=== PATIENT | female | born 1990 | race Caucasian/White ===

== ENCOUNTER → 2018-10-09 | Outpatient (CLI) | payer OTHER ==
[2018-10-09 09:20] LABS: ALANINE AMINOTRANSFERASE 12 U/L (9-52); ALBUMIN 4.7 g/dL (3.5-5.0); ALKALINE PHOSPHATASE 65 U/L (38-126); ANION GAP 10 (5-19); ASPARTATE AMINO TRANSFERASE 18 U/L (14-36); BILIRUBIN,DIRECT 0.4 mg/dL (0.0-0.4); BLOOD UREA NITROGEN 15 mg/dL (7-20); CALCIUM 9.7 mg/dL (8.4-10.2); CARBON DIOXIDE 27 mmol/L (22-30); CHLORIDE 105 mmol/L (98-107); GLUCOSE 99 mg/dL (75-110); POTASSIUM 4.4 mmol/L (3.6-5.0); SODIUM 141.9 mmol/L (137-145); TOTAL PROTEIN 7.5 g/dL (6.3-8.2)
== END ==
LOC: LAB 08:31
PROVIDERS: ATTEND Advanced Practice Midwife
DX: N97.9 Female infertility, unspecified (principal)
CPT/HCPCS: 36415; 80053; 82626; 83001; 83002; 83498; 83525; 84146

== ENCOUNTER → 2018-10-21 | Outpatient (CLI) | payer OTHER | LOC: LAB 06:00 | PROVIDERS: ATTEND Advanced Practice Midwife | DX: N91.2 Amenorrhea, unspecified (principal) | CPT/HCPCS: 36415; 84146; 84702 ==

== ENCOUNTER → 2018-11-26 | Outpatient (CLI) | payer OTHER | LOC: LAB 08:32 | PROVIDERS: ATTEND Obstetrics & Gynecology | DX: N91.2 Amenorrhea, unspecified (principal) | CPT/HCPCS: 36415; 84702 ==

== ENCOUNTER → 2018-11-28 | Outpatient (CLI) | payer OTHER | LOC: LAB 12:07 | PROVIDERS: ATTEND Advanced Practice Midwife | DX: N97.9 Female infertility, unspecified (principal) | CPT/HCPCS: 36415; 84702 ==

== ENCOUNTER 2019-07-01 14:37 | Outpatient (CLI) | payer OTHER ==
[2019-07-01 15:17] LABS: ABSOLUTE BASOPHILS # (AUTO) 0.1 10^3/uL (0.0-0.2); ABSOLUTE EOSINOPHILS # (AUTO) 0.2 10^3/uL (0.0-0.6); ABSOLUTE LYMPHOCYTES (AUTO) 1.4 10^3/uL (0.5-4.7); ABSOLUTE NEUT (AUTO) 10.3 10^3/uL (1.7-8.2); BASOPHILS % (AUTO) 0.4 % (0-2); EOSINOPHILS % (AUTO) 1.3 % (0-6); HEMATOCRIT 31.7 % (36.0-47.0); HEMOGLOBIN 10.3 g/dL (12.0-15.5); LYMPHOCYTES % (AUTO) 10.6 % (13-45); MEAN CORPUSCULAR HEMOGLOBIN 26.4 pg (27.0-33.4); MEAN CORPUSCULAR HGB CONC 32.4 g/dL (32.0-36.0); MEAN CORPUSCULAR VOLUME 81 fl (80-97); MONOCYTES % (AUTO) 7.6 % (3-13); PLATELET COUNT 324 10^3/uL (150-450); RED CELL DISTRIBUTION WIDTH 13.2 % (11.5-14.0); SEGMENTED NEUTROPHILS % (AUTO) 80.1 % (42-78); TOTAL CELLS COUNTED % (AUTO) 100 %; WHITE BLOOD COUNT 12.8 10^3/uL (4.0-10.5)
[2019-07-01 15:24] LABS: APPEARANCE,URINE CLEAR; BILIRUBIN,URINE NEGATIVE (NEGATIVE); COLOR,URINE YELLOW; GLUCOSE, URINE NEGATIVE (NEGATIVE); KETONES,URINE NEGATIVE (NEGATIVE); LEUKOCYTE ESTERASE,URINE TRACE (NEGATIVE); NITRITE,URINE NEGATIVE (NEGATIVE); PROTEIN,URINE NEGATIVE (NEGATIVE); URINE SPECIFIC GRAVITY 1.005; UROBILINOGEN,URINE NEGATIVE mg/dL (<2.0)
[2019-07-01 15:27] LABS: URINE AMPHETAMINES SCREEN NEGATIVE; URINE BARBITURATES SCREEN NEGATIVE; URINE BENZODIAZEPINES SCREEN NEGATIVE; URINE COCAINE SCREEN NEGATIVE; URINE MARIJUANA (THC) SCREEN NEGATIVE; URINE METHADONE SCREEN NEGATIVE; URINE PHENCYCLIDINE SCREEN NEGATIVE
[2019-07-01 15:43] LABS: ALBUMIN 3.5 g/dL (3.5-5.0); ALKALINE PHOSPHATASE 158 U/L (38-126); ANION GAP 10 (5-19); ASPARTATE AMINO TRANSFERASE 19 U/L (14-36); BILIRUBIN,TOTAL 0.7 mg/dL (0.2-1.3); BLOOD UREA NITROGEN 5 mg/dL (7-20); CARBON DIOXIDE 21 mmol/L (22-30); CHLORIDE 104 mmol/L (98-107); GLUCOSE 89 mg/dL (75-110); TOTAL PROTEIN 6.7 g/dL (6.3-8.2)
[2019-07-01 15:54] LABS: UR PRO/CREAT RATIO RESULT 0.3 mg/mg (0.0-0.2); URINE CREATININE 51.1 mg/dL (16-327); URINE PROTEIN 14.3 mg/dL (<12)
--- NOTE | 2019-07-01 16:20 | Non Stress Test Report ---
Non Stress Test Datetime Report Generated by CPN: 07/01/2019 16:19 DEMOGRAPHIC EGA NST: 35.6 INDICATION Indication for Study: Ordered by Provider Indication for Study (NST) Other: LC MONITORING Monitor Explained: Monitor Explained; Test Explained; Patient Verbalized Understanding Time on Monitor: 07/01/2019 14:50 Time off Monitor: 07/01/2019 15:45 NST Duration: 55 NST INTERVENTIONS NST Interventions: PO Hydration Physician Notified NST: N Garcia CNM BABY A: [id number] BABY A Movement : Present Contraction Frequency : rare FHR Baseline : 145 Accelerations : 15X15 Decelerations : None Variability : Moderate 6-25bpm NST Review: Meets Criteria for Reactive NST NST Review and Verified By : Shelby Claudio RN NST Results: Reactive NST REPORT Report Trigger: Send Report
[2019-07-02 16:57] LABS: URINE PROTEIN 15.1 mg/dL (<12)
[2019-07-02 16:59] LABS: 24 HOUR URINE PROTEIN RESULT 429 mg/day (42-225)
== END 2019-07-01 16:03 | disposition home or self-care (01) ==
LOC: LC 14:37
PROVIDERS: ATTEND Obstetrics & Gynecology
PROC: 4A1HXCZ Monitoring of Products of Conception, Cardiac Rate, External Approach (ICD-10-PCS; principal; 2019-07-01)
DX: O24.410 Gestational diabetes mellitus in pregnancy, diet controlled (principal); Z3A.35 35 weeks gestation of pregnancy
CPT/HCPCS: 36415; 59025; 80053; 80307; 81001; 82570; 83615; 84156; 84550; 85025; 87086

== ENCOUNTER 2019-07-26 14:20 | Inpatient (IN) | payer OTHER ==
[2019-07-26] MEDS ORDERED: PENICILLIN G POTASSIUM 5,000,000 UNIT in DEXTROSE 5%-WATER 100 ML IV ONE (14:32)
[2019-07-26] MEDS ORDERED: DINOPROSTONE 10 MG VAGINAL INSERT.SR PV PRN (14:32)
[2019-07-26] MEDS ORDERED: RINGERS SOLUTION,LACTATED 300 ML IV ONE (14:32)
[2019-07-26] MEDS ORDERED: OXYTOCIN/NORMAL SALINE 20 UNIT/1,000 ML RTUINJ IV PRN (14:32)
[2019-07-26 15:09] LABS: ABSOLUTE BASOPHILS # (AUTO) 0.1 10^3/uL (0.0-0.2); ABSOLUTE EOSINOPHILS # (AUTO) 0.1 10^3/uL (0.0-0.6); ABSOLUTE LYMPHOCYTES (AUTO) 1.7 10^3/uL (0.5-4.7); ABSOLUTE NEUT (AUTO) 12.5 10^3/uL (1.7-8.2); BASOPHILS % (AUTO) 0.5 % (0-2); HEMATOCRIT 30.9 % (36.0-47.0); HEMOGLOBIN 10.3 g/dL (12.0-15.5); MEAN CORPUSCULAR HEMOGLOBIN 25.5 pg (27.0-33.4); MEAN CORPUSCULAR HGB CONC 33.3 g/dL (32.0-36.0); MONOCYTES % (AUTO) 6.3 % (3-13); PLATELET COUNT 350 10^3/uL (150-450); RED BLOOD COUNT 4.04 10^6/uL (3.72-5.28); RED CELL DISTRIBUTION WIDTH 14.4 % (11.5-14.0); SEGMENTED NEUTROPHILS % (AUTO) 81.2 % (42-78); TOTAL CELLS COUNTED % (AUTO) 100 %; WHITE BLOOD COUNT 15.4 10^3/uL (4.0-10.5)
[2019-07-26 15:13] LABS: MEAN CORPUSCULAR VOLUME 77 fl (80-97)
[2019-07-26] MEDS: RINGERS SOLUTION,LACTATED 1,000 ML IV PRN ×2 (15:17→23:09)
[2019-07-26 15:27] LABS: URINE AMPHETAMINES SCREEN NEGATIVE; URINE BARBITURATES SCREEN NEGATIVE; URINE BENZODIAZEPINES SCREEN NEGATIVE; URINE COCAINE SCREEN NEGATIVE; URINE MARIJUANA (THC) SCREEN NEGATIVE; URINE METHADONE SCREEN NEGATIVE; URINE PHENCYCLIDINE SCREEN NEGATIVE
[2019-07-26] MEDS ORDERED: MISOPROSTOL 0.1 MG TABLET ONE (15:29)
[2019-07-26] MEDS: MISOPROSTOL 0.1 MG TABLET PO SCH (15:43)
[2019-07-26] MEDS ORDERED: MISOPROSTOL 0.1 MG TABLET PV SCH (15:45)
[2019-07-26] MEDS ORDERED: MISOPROSTOL 0.1 MG TABLET PO SCH (16:00)
[2019-07-26 18:35] LABS: APPEARANCE,URINE CLOUDY; BILIRUBIN,URINE NEGATIVE (NEGATIVE); COLOR,URINE YELLOW; GLUCOSE, URINE NEGATIVE (NEGATIVE); KETONES,URINE NEGATIVE (NEGATIVE); LEUKOCYTE ESTERASE,URINE NEGATIVE (NEGATIVE); NITRITE,URINE NEGATIVE (NEGATIVE); PROTEIN,URINE NEGATIVE (NEGATIVE); URINE SPECIFIC GRAVITY 1.024; UROBILINOGEN,URINE NEGATIVE mg/dL (<2.0)
[2019-07-26] MEDS ORDERED: PENICILLIN G POTASSIUM 2,500,000 UNIT in DEXTROSE 5%-WATER 50 ML IV SCH (18:36)
[2019-07-26] MEDS ORDERED: MISOPROSTOL 0.2 MG TABLET ONE (19:27)
[2019-07-26] MEDS ORDERED: LIDOCAINE 1% INJ-PF (10 MG/ML) 30 ML SDV ONE (19:28)
[2019-07-26] MEDS ORDERED: OXYTOCIN/NORMAL SALINE 20 UNIT/1,000 ML RTUINJ ONE (19:28)
[2019-07-26] MEDS ORDERED: SERTRALINE HCL 50 MG TABLET ONE (22:55)
[2019-07-26] MEDS ORDERED: DINOPROSTONE 10 MG VAGINAL INSERT.SR ONE (22:56)
[2019-07-26] MEDS ORDERED: ZOLPIDEM TARTRATE 5 MG TABLET ONE (23:44)
[2019-07-27] MEDS ORDERED: DIPHENHYDRAMINE HCL 50 MG/ML VIAL ONE (00:55)
[2019-07-27] MEDS ORDERED: ZOLPIDEM TARTRATE 5 MG TABLET PO ONE (01:00)
[2019-07-27] MEDS ORDERED: DIPHENHYDRAMINE HCL 50 MG/ML VIAL IV ONE (01:00)
[2019-07-27] MEDS ORDERED: FENTANYL CITRATE INJ/PF 100 MCG/2 ML AMPUL ONE (04:01)
[2019-07-27] MEDS ORDERED: PHENYLEPHRINE HCL INJ/PF 10 MG/1 ML SDV ONE (04:01)
[2019-07-27] MEDS ORDERED: FENTANYL/BUPIVACAINE/NS/PF 300 MCG/150 ML RTUINJ EPI ONE (04:02)
[2019-07-27] MEDS ORDERED: EPHEDRINE SULFATE INJ 50 MG/1 ML AMPULE ONE ×2 (04:02→05:56)
[2019-07-27] MEDS ORDERED: BUPIVACAINE HCL 0.25 % INJ/PF (2.5 MG/1 ML) 30 ML VIAL ONE (04:02)
[2019-07-27] MEDS ORDERED: OXYTOCIN 10 UNIT/ML VIAL ONE (04:03)
[2019-07-27] MEDS ORDERED: MISOPROSTOL 0.2 MG TABLET ONE (04:03)
[2019-07-27] MEDS ORDERED: LIDOCAINE 1% INJ-PF (10 MG/ML) 30 ML SDV ONE (04:03)
[2019-07-27] MEDS ORDERED: OXYTOCIN/NORMAL SALINE 0 UNIT/0 ML RTUINJ ONE (04:04)
[2019-07-27 04:28] LABS: ABSOLUTE EOSINOPHILS # (AUTO) 0.1 10^3/uL (0.0-0.6); ABSOLUTE LYMPHOCYTES (AUTO) 2.3 10^3/uL (0.5-4.7); ABSOLUTE MONOCYTES (AUTO) 1.3 10^3/uL (0.1-1.4); ABSOLUTE NEUT (AUTO) 14.7 10^3/uL (1.7-8.2); BASOPHILS % (AUTO) 0.3 % (0-2); EOSINOPHILS % (AUTO) 0.6 % (0-6); HEMATOCRIT 31.4 % (36.0-47.0); HEMOGLOBIN 10.3 g/dL (12.0-15.5); LYMPHOCYTES % (AUTO) 12.7 % (13-45); MEAN CORPUSCULAR HGB CONC 32.8 g/dL (32.0-36.0); MEAN CORPUSCULAR VOLUME 76 fl (80-97); MONOCYTES % (AUTO) 6.8 % (3-13); PLATELET COUNT 337 10^3/uL (150-450); RED BLOOD COUNT 4.12 10^6/uL (3.72-5.28); RED CELL DISTRIBUTION WIDTH 14.5 % (11.5-14.0); SEGMENTED NEUTROPHILS % (AUTO) 79.6 % (42-78); TOTAL CELLS COUNTED % (AUTO) 100 %; WHITE BLOOD COUNT 18.4 10^3/uL (4.0-10.5)
[2019-07-27 04:44] LABS: ALBUMIN 3.6 g/dL (3.5-5.0); ALKALINE PHOSPHATASE 186 U/L (38-126); ANION GAP 10 (5-19); ASPARTATE AMINO TRANSFERASE 17 U/L (14-36); BILIRUBIN,DIRECT 0.1 mg/dL (0.0-0.4); BILIRUBIN,TOTAL 0.8 mg/dL (0.2-1.3); BLOOD UREA NITROGEN 11 mg/dL (7-20); CALCIUM 9.7 mg/dL (8.4-10.2); CARBON DIOXIDE 17 mmol/L (22-30); CHLORIDE 110 mmol/L (98-107); GLUCOSE 102 mg/dL (75-110); POTASSIUM 4.4 mmol/L (3.6-5.0); TOTAL PROTEIN 6.5 g/dL (6.3-8.2); URIC ACID 4.4 mg/dL (2.5-6.2)
[2019-07-27] MEDS ORDERED: OXYTOCIN/NORMAL SALINE 20 UNIT/1,000 ML RTUINJ IV PRN ×2 (07:29→15:25)
[2019-07-27] MEDS: RINGERS SOLUTION,LACTATED 1,000 ML IV PRN (07:45)
[2019-07-27] MEDS ORDERED: SERTRALINE HCL 50 MG TABLET PO SCH (10:00)
--- NOTE | 2019-07-27 10:03 | Admission Physical ---
Datetime Report Generated by CPN: 07/27/2019 10:03 CURRENT ADMISSION Chief Complaint: Scheduled Induction of Labor Indication for Induction: Eclampsia - Moderate; Maternal Diabetes Admit Impression : Term, Intrauterine ; Intact Membranes; Induction of Labor Admit Plan: Admit to Unit; Initiate Labor Induction Protocol ALLERGIES Medication Allergies: Yes Medication Allergies: clindamycin (07/01/2019); cefuroxime (07/01/2019) Latex: No Latex Allergies Food Allergies: n/a Environmental Allergies: n/a OBSTETRICAL HISTORY EDC: 07/30/2019 00:00 : 1 Para: 0 Term: 0 : 0 SAB: 0 IAB: 0 Ectopic: 0 Livin Cesareans: 0 VBACs: 0 Multiple Births: 0 Gestational Diabetes: Yes Rh Sensitization: No Incompetent Cervix: No [place]: No Infertility: Yes ART Treatment: No Uterine Anomaly: No IUGR: No Hx Previous C/S: No Macrosomia: No Hx Loss/Stillborn: No PIH: No Hx : No Placenta Previa/Abruption: No Depression/PP Depression: No PTL/PROM: No Post Hemorrhage: No Current Procedures: Ultrasound; NST Obstetrical History Comments: G1- current, GDM - diet controlled, pre-e, infertility (used clomid to get ) SEE RECORDS Alcohol: No Marijuana : No Cocaine: No Other Illicit Drugs: No Cigarettes: Never Smoker. 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 Surgery: No Heart Disease: No Hosp/Surgery: Yes Autoimmune Disorder: No Anesthetic Complications: No Kidney Disease: No Abnormal Pap Smear: No Neuro/Epilepsy: No Psychiatric Disorders: Yes Other Medical Diseases: No Hepatitis/Liver Disease: No Significant Family History: No Varicosities/Phlebitis: No Trauma/Violence : No Thyroid Dysfunction: No Medical History Comments: PCOS; anxiety (takes zoloft); tonsillectomy at 22 INFECTIOUS HISTORY Gonorrhea: No Genital Herpes: No Chlamydia: No Tuberculosis: No Syphilis: No Hepatitis: No HIV/AIDS Exposure: No Rash or Viral Illness: No HPV: No PHYSICAL EXAM General: Normal HEENT: Normal Neurologic: Normal Thyroid: Normal Heart: Normal Lungs: Normal Breast: Normal Back: Normal Abdomen: Normal Genitourinary Exam: Normal Extremities: Normal DTRs: Normal Pelvic Type: Adequate Vital Signs: Reviewed; Within Normal Limits VAGINAL EXAM Dilatation: 3 Effacement: 50% Station: -2 Contraction Comments: irregular MEMBRANES Membranes: Ruptured Amniotic Fluid Color: Clear FETUS A EGA: 39.4 Monitoring: External US FHR- Baseline: 130s Variability: Moderate 6-25bpm Accelerations: 15X15 Decelerations: None FHR Category: Category I Admit Comment: with IUP at 39.4 wks presented to L_D for a schduled IOL secondary to GDM (diet controlled) and pre-eclampsia. She reports good movements. Intermittemt vision changes. Cervidil placed last night w/ a closed cervix. She has now had SROM and is GBS Pos. She has an epidural and is comfortable. Her cervix is 3 cm. PLANS FOR LABOR AND DELIVERY Labor and Delivery: None Pain Management: Epidural Feeding Preference: Breast Benefit of Breast Feed Discussed: Yes Circumcision: Yes INFORMED CONSENT Signature: with User ID: [email or web address]
[2019-07-27] MEDS ORDERED: IBUPROFEN 800 MG TABLET ONE (14:49)
[2019-07-27] MEDS ORDERED: BENZOCAINE/MENTHOL AEROSOL SPRAY 56 ML ONE (14:49)
[2019-07-27] MEDS ORDERED: ACETAMINOPHEN 325 MG TABLET PO PRN (15:25)
[2019-07-27] MEDS ORDERED: DIPHENHYDRAMINE HCL 25 MG CAPSULE PO PRN (15:25)
[2019-07-27] MEDS ORDERED: NA PHOS,M-B/NA PHOS,DI-BA (ADULT) 133 ML ENEMA PR PRN (15:25)
[2019-07-27] MEDS ORDERED: PROMETHAZINE HCL 25 MG SUPP.RECT PR PRN (15:25)
[2019-07-27] MEDS ORDERED: DIBUCAINE 1% OINTMENT 56 GM TP PRN (15:25)
[2019-07-27] MEDS ORDERED: PSEUDOEPHEDRINE HCL 30 MG TABLET PO PRN (15:25)
[2019-07-27] MEDS ORDERED: PROMETHAZINE HCL INJ 25 MG/1 ML VIAL IV PRN (15:25)
[2019-07-27] MEDS ORDERED: GLYCERIN/WITCH HAZEL LEAF 1 EACH MED..WIPE TP PRN (15:25)
[2019-07-27] MEDS ORDERED: ACETAMINOPHEN WITH CODEINE #3 TABLET PO PRN (15:25)
[2019-07-27] MEDS ORDERED: BENZOCAINE/MENTHOL AEROSOL SPRAY 56 ML TOP PRN (15:25)
[2019-07-27] MEDS ORDERED: MAGNESIUM HYDROXIDE SUSP 30 ML UDCUP PO PRN (15:25)
[2019-07-27] MEDS ORDERED: PROMETHAZINE HCL 25 MG TABLET PO PRN (15:25)
[2019-07-27] MEDS ORDERED: DIPH/PERTUSS(ACELL)/TETANUS VAC/PF 0.5 ML SYR (>=10YO) IM PRN (15:25)
[2019-07-27] MEDS ORDERED: MEASLES,MUMPS&RUBELLA VACC/PF 0.5 ML VIAL SUBCUT PRN (15:25)
[2019-07-27] MEDS ORDERED: OXYCODONE-ACETAMINOPHEN 5-325 MG TABLET ONE (15:28)
--- NOTE | 2019-07-27 16:31 | Warning Signs in Babies ---
VOD Warning Signs Datetime Report Generated by [facility]: 07/27/2019 16:31 VOD#608 -Warning Signs in Babies: Viewed with Parent(s)/Family (07/01/2019 14:39:Isabel Claudio RN)
--- NOTE | 2019-07-27 16:45 | Delivery Summary ---
Del Sum A-C Datetime Report Generated by CPN: 07/27/2019 16:44 DELIVERY PERSONNEL DELIVERY PERSONNEL: [id number] Delivery Doctor:: Lissy Campo CNM Labor and Delivery Nurse:: PROSPER Witt Labor and Delivery Nurse:: Isabel Claudio RN Nursery Nurse:: Linda Martinez RN Fruit Grader/BARTENDER: Cherrie Chen [employer] Additional Personnel: : Peggy Gallardo RN MATERNAL INFORMATION Delivery Anesthesia: Epidural Medications After Delivery: Pitocin Bolus-Please Comment; Pitocin Drip 20 Units/1000ml NSS Estimated Blood Loss (ml): 300 Delivery QBL: 300 Maternal Complications: None Provider Comments: pt progressed to c/c/1 with urge to push; began pushing and with much coaching and position changes quickly went on to deliver a viable baby boy. Baby delivered through nuchal x1. Cord allowed to stop pulsating, clamped x2 (3vc noted) and cut by FOB. Cord blood collected, placenta delivered spontaneously intact (marginal cord insertion and moderate calcifications noted), fundus firm @ u-2, minimal bleeding. Lacerations as stated above and moderate edema. Hemostatis achieved, bleeding stable. Mother and baby remain skin to skin and bonding at this time. Dr. Ramsey present at delivery. LABOR SUMMARY EDC: 07/30/2019 00:00 No. Babies in Womb: 1 Attempted: No Labor Anesthesia: None LABOR INFORMATION Reason for Induction: Pre-Eclampsia; Maternal Diabetes Onset of Labor: 07/27/2019 03:45 Complete Dilatation: 07/27/2019 13:13 Cervical Ripening Agents: Cervidil; Cytotec @ Oxytocin: Induction Group B Beta Strep: positive Antibiotics # of Doses: 1 Antibiotics Time of Last Dose: 0356 Name of Antibiotic Given: Vancomycin Steroids Given: None Reason Steroids Not Administered: Not Applicable MEMBRANES Membranes Rupture Method: Spontaneous Rupture of Membranes: 07/27/2019 03:45 Length of Rupture (hr): 10.53 Amniotic Fluid Color: Clear Amniotic Fluid Amount: Small Amniotic Fluid Odor: None STAGES OF LABOR Stage 1 hr: 9 Stage 1 min: 28 Stage 2 hr: 1 Stage 2 min: 4 Stage 3 hr: 0 Stage 3 min: 10 Total Time in Labor hr: 10 Total Time in Labor min: 42 VAGINAL DELIVERY Episiotomy: None Laceration #1: Perineal; Vaginal Laceration Extension #1: Second Degree Laceration Repair: Yes Laceration Repair Note: MLL with bilateral labial extensions repaired with 2-0 chromic in the usual fashion. Hemostasis achieved moderate labial, vaginal and cervical edema present Sponge Count Correct: N/A Sharps Count Correct: N/A CSECTION DELIVERY Primary Indication: N/A Secondary Indication: N/A CSection Incidence: N/A Labor: N/A Elective: N/A CSection Incision: N/A BABY A INFORMATION Delivery Date/Time: 07/27/2019 14:17 Method of Delivery: Vaginal Born in Route : No : N/A Forceps: N/A Vacuum Extraction: N/A Shoulder Dystocia : No PRESENTATION/POSITION BABY A Presentation: Cephalic Cephalic Presentation: Vertex Vertex Position: Left Occipital Anterior Breech Presentation: N/A PLACENTA INFORMATION BABY A Placenta Delivery Time : 07/27/2019 14:27 Placenta Method of Delivery: Spontaneous Placenta Status: Delivered SCORES BABY A Heart Rate 1 min: >100 bpm Resp Effort 1 min: Slow, Irregular Reflex Irritability 1 min: Cough or Sneeze or Pulls Away Muscle Tone 1 min: Active Motion Color 1 min: Blue/Pale Resuscitation Effort 1 min: Tactile Stimulation SCORE 1 MIN: 7 Heart Rate 5 min: >100 bpm Resp Effort 5 min: Good Cry Reflex Irritability 5 min: Cough or Sneeze or Pulls Away Muscle Tone 5 min: Active Motion Color 5 min: Body [place], Extremities Blue Resuscitation Effort 5 min: Tactile Stimulation SCORE 5 MIN: 9 INFANT INFORMATION BABY A Gestational Age at Delivery: 39.4 Gestational Status: Full Term- 39- 40.6 Weeks Infant Outcome : Liveborn Condition : Stable Infant Sex: Male IDENTIFICATION BABY A Verification Date/Time: 07/27/2019 14:32 ID Band Number: [id number] Mother's Name Verified: Yes Infant RN Verifying : R. Sami, RN/ Linda Ameeey, RN WEIGHT/LENGTH BABY A Infant Birthweight (gm): 3918 Weight (lb): 8 Weight (oz): 10 Length (in): 21.00 Infant Length (cm): 53.34 CORD INFORMATION BABY A No. Cord Vessels: 3 Nuchal Cord : Around Neck x1, Loose Cord Blood Taken: Yes-For Storage (Mom's Blood type +) Infant Suction: None ASSESSMENT BABY A Infant Complications: Other Infant Complications- Other: nuchal cord Physical Findings at Delivery: Caput Succedaneum; Molding of the Head; Bruising Infant Respirations: Appears Normal Skin to Skin: Yes Skin to Skin Time (min): 60 Bobbin Cleaner/ALS Called : No Care By: Andrew Martinez RN Transferred To: Remains with Mother BABY B INFORMATION : N/A SIGNATURES Assignment: Pati Ramsey MD Signature: with User ID: Tony : with User ID: Tony
[2019-07-27] MEDS ORDERED: DOCUSATE SODIUM 100 MG CAPSULE ONE (18:05)
[2019-07-27] MEDS ORDERED: FERROUS SULFATE 325 MG TABLET PO ONE (18:06)
[2019-07-27] MEDS: FERROUS SULFATE 325 MG TABLET PO SCH (18:15)
[2019-07-27] MEDS: DOCUSATE SODIUM 100 MG CAPSULE PO SCH (18:15)
[2019-07-27] MEDS: VANCOMYCIN HCL 1,000 MG in DEXTROSE 5%-WATER 250 ML IV SCH ×2 (21:08→21:09)
[2019-07-27] MEDS: MISOPROSTOL 0.1 MG TABLET PO SCH (21:09)
[2019-07-27] MEDS: MISOPROSTOL 0.1 MG TABLET PV SCH (21:09)
[2019-07-27] MEDS: FAMOTIDINE 20 MG TABLET PO SCH (21:32)
[2019-07-27] MEDS: IBUPROFEN 800 MG TABLET PO SCH (21:32)
[2019-07-28] MEDS: IBUPROFEN 800 MG TABLET PO SCH ×3 (05:37→21:01)
[2019-07-28 06:47] LABS: HEMATOCRIT 24.7 % (36.0-47.0); MEAN CORPUSCULAR HEMOGLOBIN 25.1 pg (27.0-33.4); MEAN CORPUSCULAR HGB CONC 32.4 g/dL (32.0-36.0); MEAN CORPUSCULAR VOLUME 78 fl (80-97); PLATELET COUNT 274 10^3/uL (150-450); RED BLOOD COUNT 3.19 10^6/uL (3.72-5.28); RED CELL DISTRIBUTION WIDTH 14.3 % (11.5-14.0); WHITE BLOOD COUNT 16.9 10^3/uL (4.0-10.5)
[2019-07-28] MEDS: FAMOTIDINE 20 MG TABLET PO SCH ×2 (10:52→21:02)
[2019-07-28] MEDS: DOCUSATE SODIUM 100 MG CAPSULE PO SCH ×2 (10:52→17:54)
[2019-07-28] MEDS: FERROUS SULFATE 325 MG TABLET PO SCH ×2 (10:52→17:54)
[2019-07-28] MEDS: SENNOSIDES/DOCUSATE 8.6-50 MG 1 EACH TABLET PO SCH (10:52)
[2019-07-28] MEDS: PRENATAL VITAMIN W DHA CAPSULE PO SCH (10:52)
--- NOTE | 2019-07-28 15:02 | PDOC PROGRESS REPORT ---
Subjective-OB Progress Note for:: 07/28/19 Subjective: reports bleeding slowing, pain controlled with current meds, denies needs Physical Exam (OB) Vital Signs: Temp Pulse Resp BP Pulse Ox 96.7 F L 77 18 125/67 98 07/28/19 12:04 07/28/19 12:04 07/28/19 07:25 07/28/19 12:04 07/28/19 07:25 Intake & Output 07/27/19 07/28/19 07/29/19 06:59 06:59 06:59 Intake Total 983 1480 Output Total 1 Balance 983 1479 Weight 93.8 kg 93.8 kg - PIH/Pre-Eclampsia Clonus: Negative - Abdomen Description: Soft Hernia Present: No Fundal Description: Firm, Midline Fundal Height: u/u - u/2 - Abdominal Inspection: Normal Distension: No distension Tenderness: Nontender - Extremities Lower extremities: Elva's sign - neg Calf: Normal, Nontender Objective-Diagnostic Laboratory: 07/28/19 06:19 07/27/19 04:16 07/28/19 06:19 WBC 16.9 H RBC 3.19 L Hgb 8.0 L D Hct 24.7 L MCV 78 L MCH 25.1 L MCHC 32.4 RDW 14.3 H Plt Count 274 Assessment and Plan(PN) - Time Spent with Patient Time with patient: Less than 15 minutes Medications reviewed and adjusted accordingly: Yes - Disposition Anticipated Discharge: Home Within: within 24 hours
[2019-07-28] MEDS: ACETAMINOPHEN WITH CODEINE #3 TABLET PO PRN (15:53)
[2019-07-28] MEDS: SERTRALINE HCL 50 MG TABLET PO SCH (20:57)
[2019-07-29] MEDS: ACETAMINOPHEN WITH CODEINE #3 TABLET PO PRN ×2 (03:09→18:36)
[2019-07-29] MEDS: IBUPROFEN 800 MG TABLET PO SCH ×2 (06:16→13:27)
[2019-07-29 10:29] LABS: HEMOGLOBIN 8.2 g/dL (12.0-15.5); MEAN CORPUSCULAR HEMOGLOBIN 25.1 pg (27.0-33.4); MEAN CORPUSCULAR HGB CONC 32.6 g/dL (32.0-36.0); MEAN CORPUSCULAR VOLUME 77 fl (80-97); PLATELET COUNT 308 10^3/uL (150-450); RED BLOOD COUNT 3.25 10^6/uL (3.72-5.28); RED CELL DISTRIBUTION WIDTH 14.3 % (11.5-14.0); WHITE BLOOD COUNT 13.1 10^3/uL (4.0-10.5)
[2019-07-29] MEDS: PRENATAL VITAMIN W DHA CAPSULE PO SCH (10:44)
[2019-07-29] MEDS: DOCUSATE SODIUM 100 MG CAPSULE PO SCH ×2 (10:44→17:38)
[2019-07-29] MEDS: SENNOSIDES/DOCUSATE 8.6-50 MG 1 EACH TABLET PO SCH (10:44)
[2019-07-29] MEDS: FERROUS SULFATE 325 MG TABLET PO SCH ×2 (10:44→17:38)
[2019-07-29] MEDS: FAMOTIDINE 20 MG TABLET PO SCH (10:44)
[2019-07-29] MEDS ORDERED: FERRIC CARBOXYMALTOSE INJ 750 MG/15 ML VIAL IV ONE (11:07)
[2019-07-29] MEDS: SERTRALINE HCL 50 MG TABLET PO SCH (11:11)
[2019-07-29] MEDS ORDERED: FERRIC CARBOXYMALTOSE 750 MG in NORMAL SALINE 250 ML IV ONE (12:30)
--- NOTE | 2019-07-29 16:31 | PDOC DISCHARGE SUMMARY ---
Impression - Admit/DC Date/PCP Admission Date/Primary Care Provider: 07/26/19 14:20 ALEM SHEN MD Discharge Date: 07/29/19 - Additional Information Discharge Diet: As Tolerated, Regular Discharge Activity: Activity As Tolerated, Balance Activity w/Rest, No Lifting Over 10 Pounds, Pelvic Rest, No tub bath, Walk Frequently Referrals: ALEM SHEN MD [Primary Care Provider] - Prescriptions: Ibuprofen [Motrin 800 mg Tablet] 800 mg PO Q8HP PRN #30 tablet PRN Reason: For Pain Scale 1-3 Docusate Sodium [Colace 100 mg Capsule] 100 mg PO BID #60 capsule Ferrous Sulfate [Feosol 325 mg Tablet] 325 mg PO BID #60 tablet Home Medications: Hydroxyzine Pamoate [Vistaril 50 mg Capsule] 50 mg PO DAILY 07/01/19 Vit/Dha [ Multi + Dha Capsule] 1 cap PO DAILY 07/01/19 Docusate Sodium [Colace 100 mg Capsule] 100 mg PO BID #60 capsule 07/29/19 Ferrous Sulfate [Feosol 325 mg Tablet] 325 mg PO BID #60 tablet 07/29/19 Ibuprofen [Motrin 800 mg Tablet] 800 mg PO Q8HP PRN #30 tablet 07/29/19 Results Laboratory Results: WBC 13.1 10^3/uL (4.0-10.5) H 07/29/19 10:09 RBC 3.25 10^6/uL (3.72-5.28) L 07/29/19 10:09 Hgb 8.2 g/dL (12.0-15.5) L 07/29/19 10:09 Hct 25.0 % (36.0-47.0) L 07/29/19 10:09 MCV 77 fl (80-97) L 07/29/19 10:09 MCH 25.1 pg (27.0-33.4) L 07/29/19 10:09 MCHC 32.6 g/dL (32.0-36.0) 07/29/19 10:09 RDW 14.3 % (11.5-14.0) H 07/29/19 10:09 Plt Count 308 10^3/uL (150-450) 07/29/19 10:09 Lymph % (Auto) 12.7 % (13-45) L 07/27/19 04:16 [place] % (Auto) 6.8 % (3-13) 07/27/19 04:16 Eos % (Auto) 0.6 % (0-6) 07/27/19 04:16 Baso % (Auto) 0.3 % (0-2) 07/27/19 04:16 Absolute Neuts (auto) 14.7 10^3/uL (1.7-8.2) H 07/27/19 04:16 Absolute Lymphs (auto) 2.3 10^3/uL (0.5-4.7) 07/27/19 04:16 Absolute Monos (auto) 1.3 10^3/uL (0.1-1.4) 07/27/19 04:16 Absolute Eos (auto) 0.1 10^3/uL (0.0-0.6) 07/27/19 04:16 Absolute Basos (auto) 0.0 10^3/uL (0.0-0.2) 07/27/19 04:16 Seg Neutrophils % 79.6 % (42-78) H 07/27/19 04:16 Sodium 137.3 mmol/L (137-145) 07/27/19 04:16 Potassium 4.4 mmol/L (3.6-5.0) 07/27/19 04:16 Chloride 110 mmol/L (98-107) H 07/27/19 04:16 Carbon Dioxide 17 mmol/L (22-30) L 07/27/19 04:16 Anion Gap 10 (5-19) 07/27/19 04:16 BUN 11 mg/dL (7-20) 07/27/19 04:16 Creatinine 0.47 mg/dL (0.52-1.25) L 07/27/19 04:16 Est GFR ( Amer) > 60 (>60) 07/27/19 04:16 Est GFR (MDRD) Non-Af > 60 (>60) 07/27/19 04:16 Glucose 102 mg/dL (75-110) 07/27/19 04:16 Uric Acid 4.4 mg/dL (2.5-6.2) 07/27/19 04:16 Calcium 9.7 mg/dL (8.4-10.2) 07/27/19 04:16 Total Bilirubin 0.8 mg/dL (0.2-1.3) 07/27/19 04:16 Direct Bilirubin 0.1 mg/dL (0.0-0.4) 07/27/19 04:16 Neonat Total Bilirubin Not Reportable 07/27/19 04:16 Neonat Direct Bilirubin Not Reportable 07/27/19 04:16 Neonat Indirect Bili Not Reportable 07/27/19 04:16 AST 17 U/L (14-36) 07/27/19 04:16 ALT 11 U/L (<35) 07/27/19 04:16 Alkaline Phosphatase 186 U/L (38-126) H 07/27/19 04:16 Lactate Dehydrogenase 154 U/L (120-246) 07/27/19 04:16 Total Protein 6.5 g/dL (6.3-8.2) 07/27/19 04:16 Albumin 3.6 g/dL (3.5-5.0) 07/27/19 04:16 Urine Color YELLOW 07/26/19 14:28 Urine Appearance CLOUDY 07/26/19 14:28 Urine pH 6.0 (5.0-9.0) 07/26/19 14:28 Ur Specific [place] 1.024 07/26/19 14:28 Urine Protein NEGATIVE mg/dL (NEGATIVE) 07/26/19 14:28 Urine Glucose (UA) NEGATIVE mg/dL (NEGATIVE) 07/26/19 14:28 Urine Ketones NEGATIVE mg/dL (NEGATIVE) 07/26/19 14:28 Urine Blood NEGATIVE (NEGATIVE) 07/26/19 14:28 Urine Nitrite NEGATIVE (NEGATIVE) 07/26/19 14:28 Urine Bilirubin NEGATIVE (NEGATIVE) 07/26/19 14:28 Urine Urobilinogen NEGATIVE mg/dL (<2.0) 07/26/19 14:28 Ur Leukocyte Esterase NEGATIVE (NEGATIVE) 07/26/19 14:28 Urine Ascorbic Acid NEGATIVE (NEGATIVE) 07/26/19 14:28 Urine Opiates Screen NEGATIVE 07/26/19 14:28 Urine Methadone Screen NEGATIVE 07/26/19 14:28 Ur Barbiturates Screen NEGATIVE 07/26/19 14:28 Ur Phencyclidine Scrn NEGATIVE 07/26/19 14:28 Ur Amphetamines Screen NEGATIVE 07/26/19 14:28 U Benzodiazepines Scrn NEGATIVE 07/26/19 14:28 Urine Cocaine Screen NEGATIVE 07/26/19 14:28 U Marijuana (THC) Screen NEGATIVE 07/26/19 14:28 RPR NONREACTIVE (NONREACTIVE) 07/26/19 14:50 Blood Type A POSITIVE 07/26/19 14:50 Antibody Screen NEGATIVE 07/26/19 14:50
[2019-07-29 16:35] VITALS: BP 121/70
== END 2019-07-29 18:40 | disposition home or self-care (01) | DRG 806 ==
LOC: LR 14:20 → 2N 07-27 20:45
PROVIDERS: ADMIT Obstetrics & Gynecology Gynecology; ATTEND Obstetrics & Gynecology Gynecology
PROC: 10E0XZZ Delivery of Products of Conception, External Approach (ICD-10-PCS; principal; 2019-07-27)
PROC: 0KQM0ZZ Repair Perineum Muscle, Open Approach (ICD-10-PCS; 2019-07-27)
PROC: 3E033VJ Introduction of Other Hormone into Peripheral Vein, Percutaneous Approach (ICD-10-PCS; 2019-07-27)
DX: O15.03 Eclampsia complicating pregnancy, third trimester (principal); O71.4 Obstetric high vaginal laceration alone; Z37.0 Single live birth; O24.410 Gestational diabetes mellitus in pregnancy, diet controlled; O99.343 Other mental disorders complicating pregnancy, third trimester; O99.820 Streptococcus B carrier state complicating pregnancy; O69.81X0 Labor and delivery complicated by cord around neck, without compression, not applicable or unspecified; Z3A.39 39 weeks gestation of pregnancy; Z88.8 Allergy status to other drugs, medicaments and biological substances; F41.9 Anxiety disorder, unspecified
CPT/HCPCS: 36415; 80053; 80307; 81005; 83615; 84550; 85025; 85027; 86592; 86850; 86900; 86901; 94760; J1200; J1439; J2370; J2590; J3010; J3370; J3490; J7050; J7060